=== PATIENT | male | born 1950 | race Caucasian/White ===

== ENCOUNTER 2024-01-11 11:44 | Inpatient (IN) | payer MEDICARE, SELFPAY ==
[~2024-01-11] VITALS: Ht 175.3 cm; Wt 96.3 kg
[2024-01-11] MEDS ORDERED: OXYC1TAB23 PO (11:55)
[2024-01-11] MEDS ORDERED: PRED5TA PO (11:55)
[2024-01-11] MEDS ORDERED: CLIN150C17 PO (11:55)
[2024-01-11] MEDS ORDERED: BACT800T5 PO (11:56)
[2024-01-11] MEDS ORDERED: COLC0.6T47 PO (11:56)
[2024-01-11 13:14] LABS: BASO % 0.1 % (0.0-1.0); LYMPH % 7.3 % (24.0-44.0); MONO # 0.8 10^3/uL (0.0-0.8); MONO % 5.5 % (2.0-8.0); NEUTROPHILS # 11.8 10^3/uL (1.5-8.5); NEUTROPHILS % 86.2 % (36.0-66.0); WHITE BLOOD COUNT 13.7 10^3/uL (4.0-10.0)
[2024-01-11 14:47] LABS: BLOOD UREA NITROGEN 27 MG/DL (9-23); CARBON DIOXIDE LEVEL 26 MMOL/L (20-31); CHLORIDE LEVEL 96 MMOL/L (98-107); CREATININE FOR GFR 1.08 MG/DL (0.70-1.30); GLOMERULAR FILTRATION RATE > 60.0 (>42); GLUCOSE, FASTING 482 MG/DL (74-106); POTASSIUM SERUM 5.1 MMOL/L (3.5-5.1); SODIUM LEVEL 130 MMOL/L (136-145)
[2024-01-11] MEDS: ceFAZolin SOD 2 GM in IV 1 EA IV ONE (15:50)
[2024-01-11] MEDS ORDERED: PIPERACILLIN/TAZOBACTAM SOD 3.375 GM in DEXTROSE 5% (D5W) ADV/MINI-BAG 50 ML IV SCH (16:20)
[2024-01-11] MEDS ORDERED: DEXTROSE 50% 50ML SYRINGE IV PRN (16:25)
[2024-01-11] MEDS ORDERED: GLUCOSE 4 GM CHEW PO PRN (16:25)
[2024-01-11] MEDS ORDERED: GLUCAGON INJ 1MG VIAL SC PRN (16:25)
[2024-01-11] MEDS ORDERED: CLIN-250 PO (16:39)
[2024-01-11] MEDS ORDERED: PRED20TA PO (16:42)
[2024-01-11] MEDS: HumuLIN R (REGULAR) INSULIN (NovoLIN R) **100U/ML** PER UNIT IV STA (16:43)
[2024-01-11] MEDS ORDERED: HOME MED LIST COMPLETE! XX SCH (16:45)
[2024-01-11] MEDS: VANCOMYCIN/WATER FOR INJ (PEG) 2,000 MG in IV 1 EA IV ONE (17:01)
[2024-01-11 17:10] LABS: HEMOGLOBIN 14.2 g/dl (13.5-17.5); MEAN CORPUSCULAR HEMOGLOBIN 30.6 pg (27.0-33.0); MEAN CORPUSCULAR HGB CONC 34.6 g/dl (32.0-36.5); MEAN CORPUSCULAR VOLUME 88.4 fl (80.0-96.0); PLATELET COUNT, AUTOMATED 174 10^3/uL (150-450); RED BLOOD COUNT 4.64 10^6/uL (4.30-6.10)
[2024-01-11 17:21] LABS: HEMOGLOBIN A1c 10.9 % (4.0-6.0)
[2024-01-11 17:22] LABS: INR 1.08; PROTHROMBIN TIME 14.3 SECONDS (12.5-14.5)
[2024-01-11] MEDS: LR 1,000 ML IV ONE ×2 (17:43→21:51)
[2024-01-11] MEDS: INSULIN LISPRO (NovoLOG) PER UNIT SC SCH ×2 (17:54→21:24)
[2024-01-11] MEDS: MORPHINE 2 MG/ML 1ML VIAL IV PRN (20:35)
[2024-01-11] MEDS: PIPERACILLIN/TAZOBACTAM SOD 4.5 GM in DEXTROSE 5% (D5W) ADV/MINI-BAG 50 ML IV SCH (20:37)
[2024-01-11] MEDS: LEVEMIR (INSULIN DETEMIR) 1 UNITS/0.01ML SC SCH (21:29)
[2024-01-11] MEDS: PERCOCET 5MG/325MG TAB PO PRN (22:25)
[2024-01-11 22:53] LABS: ALKALINE PHOSPHATASE 87 U/L (40-129); ALT/SGPT 34 U/L (7.0-40); AST/SGOT 19 U/L (<34); BILIRUBIN,DIRECT 0.2 MG/DL (<0.4); BILIRUBIN,TOTAL 0.5 MG/DL (0.3-1.2); BLOOD UREA NITROGEN 24 MG/DL (9-23); CALCIUM LEVEL 8.7 MG/DL (8.3-10.6); CARBON DIOXIDE LEVEL 27 MMOL/L (20-31); CHLORIDE LEVEL 98 MMOL/L (98-107); CREATININE FOR GFR 0.87 MG/DL (0.70-1.30); GLOMERULAR FILTRATION RATE > 60.0 (>42); GLUCOSE, FASTING 295 MG/DL (74-106); MAGNESIUM LEVEL 2.2 MG/DL (1.8-2.4); POTASSIUM SERUM 4.3 MMOL/L (3.5-5.1); SODIUM LEVEL 133 MMOL/L (136-145); TOTAL PROTEIN 7.2 G/DL (5.7-8.2)
[2024-01-11] MEDS: NS 500 ML IV ONE (23:05)
[2024-01-12 01:56] VITALS: BP 134/76; TEMP 97.3; O2SAT 97
[2024-01-12] MEDS: VANCOMYCIN 1,250 MG/250 ML IV BAG IV SCH (02:27)
[2024-01-12 03:23] LABS: HEMATOCRIT 35.6 % (42.0-52.0); HEMOGLOBIN 12.3 g/dl (13.5-17.5); MEAN CORPUSCULAR HGB CONC 34.6 g/dl (32.0-36.5); MEAN CORPUSCULAR VOLUME 89.7 fl (80.0-96.0); PLATELET COUNT, AUTOMATED 123 10^3/uL (150-450); RED BLOOD COUNT 3.97 10^6/uL (4.30-6.10)
[2024-01-12 03:46] LABS: BLOOD UREA NITROGEN 20 MG/DL (9-23); CALCIUM LEVEL 7.7 MG/DL (8.3-10.6); CARBON DIOXIDE LEVEL 28 MMOL/L (20-31); CHLORIDE LEVEL 101 MMOL/L (98-107); CREATININE FOR GFR 0.82 MG/DL (0.70-1.30); GLOMERULAR FILTRATION RATE > 60.0 (>42); GLUCOSE, FASTING 156 MG/DL (74-106); POTASSIUM SERUM 4.4 MMOL/L (3.5-5.1); SODIUM LEVEL 134 MMOL/L (136-145)
[2024-01-12 12:00] VITALS: BP 140/79; TEMP 97.2; O2SAT 96
[2024-01-12] MEDS: HEPARIN SOD (PORCINE) 5000UNITS/ML 1ML VIAL/SYRINGE SQ SCH (15:05)
[2024-01-12 19:27] VITALS: BP 157/95; TEMP 97.3; O2SAT 95
[2024-01-12] MEDS: oxyCODONE 5MG TAB PO PRN (20:21)
[2024-01-13] VITALS (9 sets, daily range): BP systolic 112–152; BP diastolic 68–86; TEMP 97–97.9; O2SAT 69–95
[2024-01-13 06:16] LABS: BASO % 0.1 % (0.0-1.0); EOS # 0.1 10^3/uL (0.0-0.5); EOS % 1.1 % (0.0-3.0); HEMATOCRIT 37.4 % (42.0-52.0); HEMOGLOBIN 12.8 g/dl (13.5-17.5); LYMPH # 1.5 10^3/uL (1.5-5.0); LYMPH % 19.9 % (24.0-44.0); MEAN CORPUSCULAR HEMOGLOBIN 30.3 pg (27.0-33.0); MEAN CORPUSCULAR HGB CONC 34.2 g/dl (32.0-36.5); MEAN CORPUSCULAR VOLUME 88.6 fl (80.0-96.0); MONO # 0.7 10^3/uL (0.0-0.8); MONO % 8.9 % (2.0-8.0); NEUTROPHILS # 5.1 10^3/uL (1.5-8.5); NEUTROPHILS % 69.7 % (36.0-66.0); PLATELET COUNT, AUTOMATED 129 10^3/uL (150-450); RED BLOOD COUNT 4.22 10^6/uL (4.30-6.10); WHITE BLOOD COUNT 7.3 10^3/uL (4.0-10.0)
[2024-01-13 06:37] LABS: BLOOD UREA NITROGEN 12 MG/DL (9-23); CALCIUM LEVEL 8.4 MG/DL (8.3-10.6); CARBON DIOXIDE LEVEL 29 MMOL/L (20-31); CHLORIDE LEVEL 100 MMOL/L (98-107); CREATININE FOR GFR 0.74 MG/DL (0.70-1.30); GLOMERULAR FILTRATION RATE > 60.0 (>42); GLUCOSE, FASTING 180 MG/DL (74-106); POTASSIUM SERUM 4.3 MMOL/L (3.5-5.1); SODIUM LEVEL 134 MMOL/L (136-145)
[2024-01-13] MEDS: NS 1,000 ML IV SCH ×2 (07:41→15:05)
[2024-01-13] MEDS ORDERED: fentaNYL 100 MCG/2 ML INJECTION As Ordered ONE (13:43)
[2024-01-13] MEDS ORDERED: MIDAZOLAM INJ 2MG/2ML VIAL As Ordered ONE (13:44)
[2024-01-13] MEDS ORDERED: ONDANSETRON 4MG 2ML VIAL As Ordered ONE (13:46)
[2024-01-13] MEDS ORDERED: propofoL 200 MG/20 ML VIAL As Ordered ONE (13:46)
[2024-01-13] MEDS ORDERED: LIDOCAINE 2% 100MG/5ML SDV (FOR ANES.) As Ordered ONE (13:46)
[2024-01-13] MEDS ORDERED: LIDOCAINE 1% SDV 30ML VIAL As Ordered ONE (13:51)
[2024-01-13] MEDS ORDERED: PHENYLephrine 500MCG 5ML (100MCG/ML) SYRINGE As Ordered ONE (14:21)
[2024-01-13] MEDS ORDERED: ACETAMINOPHEN 1000MG/100ML IV BAG As Ordered ONE (14:41)
[2024-01-13] MEDS ORDERED: ONDANSETRON 4MG 2ML VIAL IV PRN (15:05)
[2024-01-13] MEDS ORDERED: fentaNYL 100 MCG/2 ML INJECTION IV PRN (15:05)
[2024-01-13] MEDS ORDERED: HYDROMORPHONE HCL 0.5 MG/ 0.5 ML SYRINGE IV PRN (15:05)
[2024-01-13] MEDS: oxyCODONE 5MG TAB PO PRN (15:55)
[2024-01-13] MEDS: VANCOMYCIN 1,250 MG/250 ML IV BAG IV SCH (17:39)
[2024-01-14] VITALS (7 sets, daily range): BP systolic 102–123; BP diastolic 59–83; TEMP 97–97.7; O2SAT 91–96
[2024-01-14] MEDS: oxyCODONE 5MG TAB PO PRN (01:21)
[2024-01-14 07:10] LABS: BASO % 0.2 % (0.0-1.0); EOS # 0.1 10^3/uL (0.0-0.5); EOS % 1.3 % (0.0-3.0); HEMOGLOBIN 12.7 g/dl (13.5-17.5); LYMPH # 1.7 10^3/uL (1.5-5.0); LYMPH % 20.5 % (24.0-44.0); MEAN CORPUSCULAR HEMOGLOBIN 30.1 pg (27.0-33.0); MEAN CORPUSCULAR HGB CONC 33.4 g/dl (32.0-36.5); MONO # 0.8 10^3/uL (0.0-0.8); MONO % 9.2 % (2.0-8.0); NEUTROPHILS # 5.7 10^3/uL (1.5-8.5); NEUTROPHILS % 68.3 % (36.0-66.0); PLATELET COUNT, AUTOMATED 142 10^3/uL (150-450); RED BLOOD COUNT 4.22 10^6/uL (4.30-6.10); WHITE BLOOD COUNT 8.4 10^3/uL (4.0-10.0)
[2024-01-14 07:30] LABS: BLOOD UREA NITROGEN 10 MG/DL (9-23); CARBON DIOXIDE LEVEL 28 MMOL/L (20-31); CHLORIDE LEVEL 103 MMOL/L (98-107); CREATININE FOR GFR 0.83 MG/DL (0.70-1.30); GLOMERULAR FILTRATION RATE > 60.0 (>42); GLUCOSE, FASTING 161 MG/DL (74-106); MAGNESIUM LEVEL 2.1 MG/DL (1.8-2.4); POTASSIUM SERUM 4.3 MMOL/L (3.5-5.1); SODIUM LEVEL 135 MMOL/L (136-145)
[2024-01-15 04:00] VITALS: BP 96/63; TEMP 97.2; O2SAT 74
[2024-01-15 06:03] LABS: BASO % 0.2 % (0.0-1.0); EOS # 0.2 10^3/uL (0.0-0.5); EOS % 1.9 % (0.0-3.0); HEMATOCRIT 38.8 % (42.0-52.0); HEMOGLOBIN 13.2 g/dl (13.5-17.5); LYMPH # 2.3 10^3/uL (1.5-5.0); LYMPH % 28.7 % (24.0-44.0); MEAN CORPUSCULAR HEMOGLOBIN 30.7 pg (27.0-33.0); MEAN CORPUSCULAR VOLUME 90.2 fl (80.0-96.0); MONO # 0.7 10^3/uL (0.0-0.8); MONO % 8.4 % (2.0-8.0); NEUTROPHILS # 4.8 10^3/uL (1.5-8.5); NEUTROPHILS % 60.2 % (36.0-66.0); PLATELET COUNT, AUTOMATED 173 10^3/uL (150-450)
[2024-01-15 06:28] LABS: BLOOD UREA NITROGEN 13 MG/DL (9-23); CALCIUM LEVEL 8.8 MG/DL (8.3-10.6); CARBON DIOXIDE LEVEL 30 MMOL/L (20-31); CHLORIDE LEVEL 102 MMOL/L (98-107); GLOMERULAR FILTRATION RATE > 60.0 (>42); GLUCOSE, FASTING 125 MG/DL (74-106); MAGNESIUM LEVEL 2.1 MG/DL (1.8-2.4); POTASSIUM SERUM 4.3 MMOL/L (3.5-5.1); SODIUM LEVEL 138 MMOL/L (136-145)
[2024-01-15] MEDS ORDERED: VANCOMYCIN HCL 500 MG in DEXTROSE 5% (D5W) MINI-BAG PLU 100 ML IV SCH (07:55)
[2024-01-15 08:19] LABS: VANCOMYCIN RANDOM 5.2 UG/ML
[2024-01-15] MEDS: VANCOMYCIN 1,500 MG/300 ML IV BAG IV SCH ×2 (10:39→21:55)
[2024-01-15 12:00] VITALS: BP 99/73; TEMP 97.2; O2SAT 92
[2024-01-15] MEDS: PIPERACILLIN/TAZOBACTAM SOD 3.375 GM in DEXTROSE 5% (D5W) ADV/MINI-BAG 50 ML IV SCH (12:27)
[2024-01-15] MEDS ORDERED: INSU300I5 SQ (15:49)
[2024-01-15] MEDS ORDERED: METF-877 PO (15:49)
[2024-01-15] MEDS ORDERED: GLUC1TES2 XX (15:49)
[2024-01-15] MEDS ORDERED: LANC30MI XX (15:49)
[2024-01-15] MEDS ORDERED: BLOOKIT21 XX (15:49)
[2024-01-15] MEDS ORDERED: ALCOPAD25 TOP (15:49)
[2024-01-15] MEDS ORDERED: PEN-308 SC (15:49)
[2024-01-15 20:00] VITALS: BP 114/64; TEMP 97.3; O2SAT 97
[2024-01-15] MEDS ORDERED: VANCOMYCIN HCL 1,500 MG in NS 500 ML IV SCH (23:00)
[2024-01-16 04:00] VITALS: BP 107/65; TEMP 97; O2SAT 94
[2024-01-16 06:44] LABS: BASO % 0.3 % (0.0-1.0); EOS # 0.2 10^3/uL (0.0-0.5); HEMATOCRIT 39.4 % (42.0-52.0); HEMOGLOBIN 13.2 g/dl (13.5-17.5); LYMPH # 1.6 10^3/uL (1.5-5.0); LYMPH % 20.1 % (24.0-44.0); MEAN CORPUSCULAR HEMOGLOBIN 30.4 pg (27.0-33.0); MEAN CORPUSCULAR HGB CONC 33.5 g/dl (32.0-36.5); MEAN CORPUSCULAR VOLUME 90.8 fl (80.0-96.0); MONO # 0.6 10^3/uL (0.0-0.8); MONO % 7.6 % (2.0-8.0); NEUTROPHILS # 5.4 10^3/uL (1.5-8.5); NEUTROPHILS % 69.4 % (36.0-66.0); PLATELET COUNT, AUTOMATED 168 10^3/uL (150-450); RED BLOOD COUNT 4.34 10^6/uL (4.30-6.10); WHITE BLOOD COUNT 7.9 10^3/uL (4.0-10.0)
[2024-01-16 06:59] LABS: BLOOD UREA NITROGEN 15 MG/DL (9-23); CALCIUM LEVEL 8.8 MG/DL (8.3-10.6); CARBON DIOXIDE LEVEL 26 MMOL/L (20-31); CHLORIDE LEVEL 103 MMOL/L (98-107); CREATININE FOR GFR 0.79 MG/DL (0.70-1.30); GLOMERULAR FILTRATION RATE > 60.0 (>42); GLUCOSE, FASTING 159 MG/DL (74-106); MAGNESIUM LEVEL 1.9 MG/DL (1.8-2.4); POTASSIUM SERUM 4.2 MMOL/L (3.5-5.1); SODIUM LEVEL 137 MMOL/L (136-145)
[2024-01-16] MEDS ORDERED: CEPH500C PO (10:55)
[2024-01-16] MEDS ORDERED: OXYC1TAB23 PO (11:02)
[2024-01-16] MEDS: CEPHALEXIN 500 MG CAP PO ONE (11:35)
[2024-01-16 12:00] VITALS: BP 118/79; TEMP 97.2; O2SAT 96
== END 2024-01-16 16:30 | disposition home or self-care (01) | DRG 504 ==
LOC: M ED 11:44 → M ED INP 16:19 → M MS5PR 01-12 02:10
PROVIDERS: ADMIT Internal Medicine; ATTEND Internal Medicine
PROC: 0SBM0ZZ Excision of Right Metatarsal-Phalangeal Joint, Open Approach (ICD-10-PCS; principal; 2024-01-13 13:00)
DX: M00.871 Arthritis due to other bacteria, right ankle and foot (principal); L02.611 Cutaneous abscess of right foot; E87.1 Hypo-osmolality and hyponatremia; L03.031 Cellulitis of right toe; E11.65 Type 2 diabetes mellitus with hyperglycemia; M10.9 Gout, unspecified; D72.829 Elevated white blood cell count, unspecified; B95.61 Methicillin susceptible Staphylococcus aureus infection as the cause of diseases classified elsewhere; B95.5 Unspecified streptococcus as the cause of diseases classified elsewhere; Z79.52 Long term (current) use of systemic steroids; Z79.899 Other long term (current) drug therapy